=== PATIENT | female | born 2005 | race Two or more races ===

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

== ENCOUNTER 2024-10-12 16:32 | Emergency (ER) | payer OTHER ==
[~2024-10-12] VITALS: Ht 157.5 cm; Wt 56.7 kg
== END 2024-10-12 22:59 | disposition home or self-care (01) ==
LOC: ER 16:35 → EMR PED 16:39
DX: S09.8XXA Other specified injuries of head, initial encounter (principal); X58.XXXA Exposure to other specified factors, initial encounter; Y93.89 Activity, other specified; Y92.89 Other specified places as the place of occurrence of the external cause; Y99.8 Other external cause status; Z91.018 Allergy to other foods